=== PATIENT | male | born 1955 | race Asian ===

== ENCOUNTER 2025-07-20 15:40 | Emergency (ER) | payer MEDICARE, BC ==
[~2025-07-20] VITALS: Ht 165.1 cm; Wt 65.8 kg
[2025-07-20 15:45] VITALS: BP 111/63
[2025-07-20] MEDS ORDERED: DAPA10TA PO (16:43)
[2025-07-20] MEDS ORDERED: CILO100T3 PO (16:43)
[2025-07-20] MEDS ORDERED: TELM80TA9 PO (16:43)
[2025-07-20] MEDS ORDERED: LABE100T8 PO (16:44)
[2025-07-20] MEDS ORDERED: ATOR80TA26 PO (16:44)
[2025-07-20] MEDS ORDERED: NIFE-34 PO (16:45)
[2025-07-20] MEDS ORDERED: BACL5TAB PO (16:45)
[2025-07-20] MEDS ORDERED: [UNRECOGNIZED DRUG - CODE] PO (16:47)
[2025-07-20] MEDS ORDERED: ASCO500C18 PO (16:47)
[2025-07-20] MEDS ORDERED: CHOL100062 PO (16:47)
[2025-07-20] MEDS ORDERED: FOLI1TAB94 PO (16:47)
[2025-07-20] MEDS ORDERED: SENN-351 PO (16:48)
[2025-07-20 17:32] LABS: PLATELET COUNT (AUTO) 162 K/uL (152-348); RED BLOOD CELL COUNT(AUTO) 6.07 MIL/uL (4.06-5.63); RED CELL DISTRIBUTION WIDTH 17.3 % (12.1-16.2); WHITE BLOOD COUNT (AUTO) 7.2 K/uL (3.6-10.2)
[2025-07-20 17:45] LABS: ASPARTATE AMINOTRANSFERASE 18 U/L (15-37); CREATININE 2.1 mg/dL (0.6-1.3); SODIUM SERUM 140 mmol/L (136-145); TOTAL PROTEIN, SERUM 7.3 g/dL (6.4-8.2); UREA NITROGEN, BLOOD 31 mg/dL (7-18)
[2025-07-20 18:05] LABS: CREATINE KINASE, TOTAL 100.0 U/L (39-308)
[2025-07-20] MEDS ORDERED: FLAS1KIT2 TP (18:25)
[2025-07-20] MEDS ORDERED: FLAS1EAC2 TP (18:25)
[2025-07-20 19:40] LABS: *BILIRUBIN,URIN NEGATIVE (NEGATIVE); *BLOOD, URINE NEGATIVE (NEGATIVE); *CLARITY,URINE CLEAR (CLEAR); *COLOR,URINE YELLOW (YELLOW); *KETONES,URINE NEGATIVE (NEGATIVE); *PROTEIN,URINE 2+ (NEGATIVE); *UROBILINOGEN,URINE 0.2 E.U./dl (NORMAL); LEUKOCYTE ESTERASE ,URINE NEGATIVE (NEGATIVE); NITRITE, URINE NEGATIVE (NEGATIVE)
[2025-07-20 19:41] LABS: UGLUCOSE 1+ (NEGATIVE)
[2025-07-21 00:43] VITALS: BP 123/69; O2SAT 98
== END 2025-07-20 19:45 | disposition home or self-care (01) ==
LOC: ER 15:40
DX: R53.1 Weakness (principal); K59.00 Constipation, unspecified; E11.22 Type 2 diabetes mellitus with diabetic chronic kidney disease; I51.9 Heart disease, unspecified; N18.9 Chronic kidney disease, unspecified; E78.5 Hyperlipidemia, unspecified; G47.30 Sleep apnea, unspecified; G81.91 Hemiplegia, unspecified affecting right dominant side; Z79.84 Long term (current) use of oral hypoglycemic drugs; Z79.899 Other long term (current) drug therapy; Z86.73 Personal history of transient ischemic attack (TIA), and cerebral infarction without residual deficits; R06.02 Shortness of breath
CPT/HCPCS: 36415; 74018; 83735; 84484; 85025; A4606; A4663